=== PATIENT | female | born 1995 ===

== ENCOUNTER → 2021-08-06 | Outpatient (CLI) | payer OTHER | LOC: RAD 17:49 | DX: M25.572 Pain in left ankle and joints of left foot (principal) | CPT/HCPCS: 73610; 73630 ==

== ENCOUNTER 2021-08-21 16:17 | Emergency (ER) | payer OTHER | END 2021-08-21 21:55 | disposition left against medical advice (07) | LOC: ER1 16:17 | DX: L08.9 Local infection of the skin and subcutaneous tissue, unspecified (principal); F17.200 Nicotine dependence, unspecified, uncomplicated; Z88.0 Allergy status to penicillin; W19.XXXA Unspecified fall, initial encounter | CPT/HCPCS: 73590; 99283 ==

== ENCOUNTER 2021-12-04 13:34 | Emergency (ER) | payer OTHER ==
[2021-12-04] MEDS ORDERED: ULTRAM50 MG PO (14:24)
[2021-12-04] MEDS ORDERED: CLINDAMYCIN HC150 MG PO (14:24)
== END 2021-12-04 16:02 | disposition home or self-care (01) ==
LOC: ER1 13:34
DX: R68.84 Jaw pain (principal); F17.290 Nicotine dependence, other tobacco product, uncomplicated
CPT/HCPCS: 96372; 99283; J1885

== ENCOUNTER 2021-12-31 00:49 | Emergency (ER) | payer OTHER ==
[~2021-12-31 00:49] MED LIST: CLINDAMYCIN HC150 MG PO; ULTRAM50 MG PO
[2021-12-31] MEDS ORDERED: IBUPROFEN600 MG PO (01:54)
== END 2021-12-31 01:58 | disposition home or self-care (01) ==
LOC: ER1 00:49
DX: K03.81 Cracked tooth (principal); Z88.0 Allergy status to penicillin
CPT/HCPCS: 99282